=== PATIENT | female | born 1975 | race Caucasian/White ===

== ENCOUNTER 2018-05-30 13:09 | Emergency (ER) | payer SELFPAY ==
[2018-05-30 14:03] LABS: #Basophils 0.1 thou/uL (0.0-0.2); #Eosinphils 0.5 thou/uL (0.0-0.7); #Lymphocytes 2.5 thou/uL (1.20-3.40); #Monocytes 0.3 thou/uL (0.11-0.59); #Neutrophils 5.5 thou/uL (1.40-6.50); %Basophils 1.2 % (0.0-1.0); %Eosinophils 5.9 % (0.0-10.0); %Lymphocytes 28.2 % (21.0-51.0); %Monocytes 3.8 % (0.0-10.0); Hemoglobin 12.3 g/dL (12.0-16.0); Mean Corpuscular Hemoglobin 28.6 pg (27.0-31.0); Mean Corpuscular Volume 89.4 fL (78.0-98.0); Mean Platelet Volume 8.5 fL (7.4-10.4); Platelet Count 386 thou/uL (130-400); RBC Distribution Width 14.3 % (11.5-14.5); Red Blood Cell (RBC) Count 4.29 mill/uL (4.20-5.40); White Blood Cell (WBC) Count 8.9 thou/uL (4.8-10.8)
[2018-05-30 14:05] LABS: Base Excess-Venous 0.3 mmol/L (0 (+/- 2.5)); CO2 Tension (PvCO2) 39.8 mmHg (41.0-51.0); pH (Venous) 7.406 (7.35-7.45); vO2 Saturation-calc 99.7 % (94-98)
[2018-05-30 14:06] LABS: Calcium, Ionized 1.12 mmol/L (1.12-1.32); Potassium 4.4 mmol/L (3.4-4.7); T. Carbon Dioxide 26.2 mmol/L (1.0-85.0)
[2018-05-30 14:18] LABS: ALT (SGPT) 37 U/L (8-55); AST (SGOT) 20 U/L (5-34); Albumin 4.1 g/dL (3.5-5.0); Alkaline Phosphatase 94 U/L (40-150); Anion Gap 15 mmol/L (10-20); BUN (Urea Nitrogen) 11 mg/dL (7.0-18.7); Bilirubin, Total 0.2 mg/dL (0.2-1.2); Calc. Creatinine Clearance 0 mL/min (70-130); Calcium 9.1 mg/dL (7.8-10.44); Carbon Dioxide 22 mmol/L (22-29); Chloride 101 mmol/L (98-107); Estimated GFR-MDRD 68; Globulin 3.6 g/dL (2.4-3.5); Glucose 286 mg/dL (70-105); Magnesium 1.9 mg/dL (1.6-2.6); Potassium 4.5 mmol/L (3.5-5.1); Protein, Total 7.7 g/dL (6.0-8.3); Sodium 133 mmol/L (136-145)
[2018-05-30] MEDS ORDERED: Sodium Chloride 0.9% 1,000 ML ONE (14:28)
== END 2018-05-30 17:22 ==
LOC: MADERS 13:09
DX: E11.65 Type 2 diabetes mellitus with hyperglycemia (principal); I10 Essential (primary) hypertension; Z87.891 Personal history of nicotine dependence
CPT/HCPCS: 36415; 36416; 80053; 82330; 82803; 83735; 85025; 96360; J7050